=== PATIENT | female | born 1940 | race Caucasian/White ===

== ENCOUNTER → 2020-09-09 | Outpatient (CLI) | payer MEDICARE, OTHER ==
[~2020-09-09] MED LIST: AREDS PO; ASPIRIN CHEWABL81 MG PO; AUGMENTIN 875-1 EACH PO; CEFUROXIME500 MG PO; CELEXA10 MG PO; CURCUMIN250 GM MC; ECOTRIN81 MG PO; GABAPENTIN300 MG PO; HYDROCODONE-AC1 EAC1 PO; LIPITOR TAB 1010 MG PO; LIPITOR10 MG PO; NEURONTIN 300300 MG PO; NORCO 5-325 TA1 EACH PO; NOVOLOG100 UNIT/1 SC; NOVOLOG100 UNIT/1 SQ; RESTASIS1 EACH EYELF; RESTASIS1 EACH EYERT; ROBAXIN 750 MG750 MG PO; ROBAXIN-750750 MG PO; SODIUM POL15 GM/601 PO; THERAGRAN M TAB1 EA PO; TRESIBA100 UNIT/1 SQ; TYLENOL 325MG325 MG PO; TYLENOL EXTRA500 MG PO; VITAMIN C 500500 MG PO; VITAMIN D3 PO; VITAMIN D31000 UNI1 PO; VORT5TAB PO
== END ==
LOC: EXRD 09:48
DX: I73.89 Other specified peripheral vascular diseases (principal); E11.42 Type 2 diabetes mellitus with diabetic polyneuropathy
CPT/HCPCS: 93925

== ENCOUNTER → 2020-09-17 | Outpatient (CLI) | payer MEDICARE, OTHER | LOC: CT 13:13 | DX: K31.84 Gastroparesis (principal); R91.1 Solitary pulmonary nodule | CPT/HCPCS: 71250; 78264; A9541 ==

== ENCOUNTER → 2020-10-31 | Outpatient (CLI) | payer MEDICARE, OTHER | LOC: LAB 10:10 | PROVIDERS: Internal Medicine Nephrology | DX: M54.5 Low back pain (principal) | CPT/HCPCS: 36415; 80053; 81001; 82570; 84156 ==

== ENCOUNTER → 2020-11-14 | Day surgery (SDC) | payer MEDICARE, OTHER | END | disposition home or self-care (01) | LOC: OR 08:12 | DX: K29.51 Unspecified chronic gastritis with bleeding (principal); K21.00 Gastro-esophageal reflux disease with esophagitis, without bleeding; K25.9 Gastric ulcer, unspecified as acute or chronic, without hemorrhage or perforation; K31.9 Disease of stomach and duodenum, unspecified; K31.4 Gastric diverticulum; I12.9 Hypertensive chronic kidney disease with stage 1 through stage 4 chronic kidney disease, or unspecified chronic kidney disease; E11.22 Type 2 diabetes mellitus with diabetic chronic kidney disease; N18.4 Chronic kidney disease, stage 4 (severe); E11.43 Type 2 diabetes mellitus with diabetic autonomic (poly)neuropathy; K31.84 Gastroparesis; I25.10 Atherosclerotic heart disease of native coronary artery without angina pectoris; E78.00 Pure hypercholesterolemia, unspecified; K21.9 Gastro-esophageal reflux disease without esophagitis; I25.2 Old myocardial infarction; E66.8 Other obesity; Z68.35 Body mass index [BMI] 35.0-35.9, adult; Z95.5 Presence of coronary angioplasty implant and graft; Z88.5 Allergy status to narcotic agent; Z79.4 Long term (current) use of insulin; Z79.82 Long term (current) use of aspirin; Z79.899 Other long term (current) drug therapy | CPT/HCPCS: 82962; J2704; J7040 ==

== ENCOUNTER → 2020-11-25 | Outpatient (CLI) | payer MEDICARE | LOC: EXRD 09:30 | DX: M79.605 Pain in left leg (principal) | CPT/HCPCS: 93971 ==

== ENCOUNTER → 2020-12-23 | Outpatient (CLI) | payer MEDICARE ==
[2020-12-23 15:38] LABS: HEMOGLOBIN 13.8 gm/dl (12.3-15.3); RED BLOOD COUNT 4.46 M/UL (4.00-5.10); WHITE BLOOD COUNT 7.4 K/UL (4.5-11.0)
== END ==
LOC: LAB 14:07
PROVIDERS: Nurse Practitioner
DX: J01.00 Acute maxillary sinusitis, unspecified (principal); G51.9 Disorder of facial nerve, unspecified; G44.89 Other headache syndrome
CPT/HCPCS: 36415; 80053; 85025

== ENCOUNTER → 2020-12-25 | Outpatient (CLI) | payer MEDICARE, OTHER | LOC: KOH-I 15:47 | DX: G44.89 Other headache syndrome (principal); G51.9 Disorder of facial nerve, unspecified; G31.9 Degenerative disease of nervous system, unspecified | CPT/HCPCS: 70450 ==

== ENCOUNTER → 2021-01-06 | Outpatient (CLI) | payer MEDICARE, OTHER | LOC: LAB 11:49 | PROVIDERS: Emergency Medicine | DX: E11.65 Type 2 diabetes mellitus with hyperglycemia (principal); E11.22 Type 2 diabetes mellitus with diabetic chronic kidney disease; N18.4 Chronic kidney disease, stage 4 (severe); E78.2 Mixed hyperlipidemia; E55.9 Vitamin D deficiency, unspecified; E53.8 Deficiency of other specified B group vitamins; E87.5 Hyperkalemia; R91.1 Solitary pulmonary nodule; R94.6 Abnormal results of thyroid function studies | CPT/HCPCS: 36415; 80053; 83036; 84443; 84550 ==

== ENCOUNTER → 2021-04-07 | Outpatient (CLI) | payer MEDICARE, OTHER | LOC: LBRF 16:50 | DX: N39.0 Urinary tract infection, site not specified (principal) | CPT/HCPCS: 87086 ==

== ENCOUNTER → 2021-04-10 | Outpatient (CLI) | payer MEDICARE, OTHER | LOC: LAB 09:41 | PROVIDERS: Internal Medicine Nephrology | DX: E11.22 Type 2 diabetes mellitus with diabetic chronic kidney disease (principal); N18.9 Chronic kidney disease, unspecified | CPT/HCPCS: 36415; 80053; 81001; 82570; 83036; 84156 ==

== ENCOUNTER → 2021-05-16 | Outpatient (CLI) | payer MEDICARE, OTHER | LOC: EXRD 11:13 | DX: M17.0 Bilateral primary osteoarthritis of knee (principal); M25.522 Pain in left elbow; M11.262 Other chondrocalcinosis, left knee; M11.261 Other chondrocalcinosis, right knee | CPT/HCPCS: 73080; 73564 ==

== ENCOUNTER → 2021-05-20 | Outpatient (CLI) | payer MEDICARE, OTHER | LOC: LBRF 17:14 | DX: N39.0 Urinary tract infection, site not specified (principal); R35.0 Frequency of micturition; R39.15 Urgency of urination | CPT/HCPCS: 87086 ==

== ENCOUNTER → 2021-07-10 | Outpatient (CLI) | payer MEDICARE, OTHER ==
[2021-07-10 12:25] LABS: HEMOGLOBIN 14.9 gm/dl (12.3-15.3); RED BLOOD COUNT 4.89 M/UL (4.00-5.10); WHITE BLOOD COUNT 5.4 K/UL (4.5-11.0)
[2021-07-11 08:14] LABS: CREATININE, URINE 67.3 mg/dL (Not Estab.)
[2021-07-12 13:09] LABS: CHOLESTEROL, TOTAL 155 mg/dL (100-199); HDL SIZE 8.7 nm (>=9.2); HDL-C 36 mg/dL (>39); HDL-P (TOTAL) 28.5 umol/L (>=30.5); LARGE HDL-P 4.6 umol/L (>=4.8); LARGE VLDL-P 11.6 nmol/L (<=2.7); LDL SIZE 20.4 nm (>20.5); LDL SIZE 20.4 nm (>=20.8); LDL-C 81 mg/dL (0-99); LDL-P 1172 nmol/L (<1000); LP-IR SCORE 81 (<=45); SMALL LDL-P 607 nmol/L (<=527); TRIGLYCERIDES 230 mg/dL (0-149); VLDL SIZE 55.9 nm (<=46.6)
== END ==
LOC: LAB 11:03
PROVIDERS: Emergency Medicine; Internal Medicine Nephrology
DX: R53.83 Other fatigue (principal); R06.02 Shortness of breath; I25.10 Atherosclerotic heart disease of native coronary artery without angina pectoris; E11.22 Type 2 diabetes mellitus with diabetic chronic kidney disease; N18.30 Chronic kidney disease, stage 3 unspecified; E78.2 Mixed hyperlipidemia; E55.9 Vitamin D deficiency, unspecified; E53.8 Deficiency of other specified B group vitamins; J98.11 Atelectasis
CPT/HCPCS: 36415; 71046; 80053; 80061; 81001; 82043; 82306; 82570; 82607; 83036; 83704; 83880; 84156; 84443; 84550; 85025; 85379

== ENCOUNTER → 2021-08-04 | Outpatient (CLI) | payer MEDICARE, OTHER | LOC: LBRF 15:56 | DX: N39.0 Urinary tract infection, site not specified (principal) | CPT/HCPCS: 87086 ==

== ENCOUNTER → 2022-01-14 | Outpatient (CLI) | payer MEDICARE, OTHER ==
[~2022-01-14] MED LIST changes: +CEFDINIR300 MG PO; +PROVENTIL HFA6.7 GM INH
[2022-01-14 12:07] LABS: HEMOGLOBIN 14.7 gm/dl (12.3-15.3); RED BLOOD COUNT 4.83 M/UL (4.00-5.10); WHITE BLOOD COUNT 5.5 K/UL (4.5-11.0)
[2022-01-19 13:09] LABS: 25-HYDROXY, VITAMIN D-2 1.9 ng/mL (.)
== END ==
LOC: LAB 10:59
PROVIDERS: Emergency Medicine
DX: E11.22 Type 2 diabetes mellitus with diabetic chronic kidney disease (principal); N18.30 Chronic kidney disease, stage 3 unspecified; F41.1 Generalized anxiety disorder; R60.0 Localized edema; E78.2 Mixed hyperlipidemia; E11.42 Type 2 diabetes mellitus with diabetic polyneuropathy; E55.9 Vitamin D deficiency, unspecified
CPT/HCPCS: 36415; 80053; 81001; 82306; 82570; 83036; 84156; 84443; 85025

== ENCOUNTER 2022-01-18 10:46 | Emergency (ER) | payer MEDICARE, OTHER ==
[~2022-01-18 10:46] MED LIST changes: -CEFDINIR300 MG PO; -PROVENTIL HFA6.7 GM INH
[2022-01-18] MEDS ORDERED: PROVENTIL HFA6.7 GM INH (13:52)
[2022-01-18] MEDS ORDERED: CEFDINIR300 MG PO (13:52)
== END 2022-01-18 14:04 | disposition home or self-care (01) ==
LOC: ER1 10:46
DX: J44.9 Chronic obstructive pulmonary disease, unspecified (principal); N39.0 Urinary tract infection, site not specified; I12.9 Hypertensive chronic kidney disease with stage 1 through stage 4 chronic kidney disease, or unspecified chronic kidney disease; E11.22 Type 2 diabetes mellitus with diabetic chronic kidney disease; N18.4 Chronic kidney disease, stage 4 (severe)
CPT/HCPCS: 71045; 81001; 94664; 99284

== ENCOUNTER → 2022-03-24 | Outpatient (CLI) | payer MEDICARE, OTHER ==
[~2022-03-24] MED LIST changes: +CEFDINIR300 MG PO; +PROVENTIL HFA6.7 GM INH
== END ==
LOC: KOH-I 13:45
DX: M51.16 Intervertebral disc disorders with radiculopathy, lumbar region (principal); M43.16 Spondylolisthesis, lumbar region; M51.27 Other intervertebral disc displacement, lumbosacral region
CPT/HCPCS: 72148